=== PATIENT | male | born 1965 | race Caucasian/White ===

== ENCOUNTER 2018-02-04 19:46 | Inpatient (IN) | payer OTHER ==
[~2018-02-04] VITALS: Ht 177.8 cm; Wt 90.8 kg
[2018-02-04 21:11] LABS: PLATELET COUNT 123 x10^3mcL (130-400)
[2018-02-04 21:36] LABS: ALKALINE PHOSPHATASE 174 U/L (46-116); ALT/SGPT 33 U/L (16-63); AMYLASE 44 U/L (25-115); AST/SGOT 51 U/L (15-37); BILIRUBIN TOTAL 2.11 mg/dL (0.20-1.00); CALCIUM 8.3 mg/dL (8.5-10.1); CARBON DIOXIDE 25.2 mmol/L (21-32); CHLORIDE SERUM 99 mmol/L (98-107); CREATININE SERUM 1.6 mg/dL (0.7-1.3); GFR1 49 mL/min; GLUCOSE SERUM 110 mg/dL (74-106); LIPASE 395 IU/L (73-393); SODIUM SERUM 129 mmol/L (136-145); TOTAL PROTEIN, SERUM 8.1 g/dL (6.4-8.2)
[2018-02-04 21:38] LABS: ALBUMIN 2.3 g/dL (3.4-5.0)
[2018-02-04 21:39] LABS: POTASSIUM SERUM 5.9 mmol/L (3.5-5.1)
[2018-02-04] MEDS ORDERED: CALCIUM 1,0001 EACH PO (22:55)
[2018-02-04] MEDS ORDERED: PROPRANOLOL HCL20 MG PO (22:56)
[2018-02-04] MEDS ORDERED: LACTULOSE10 GM/152 PO (22:56)
[2018-02-04] MEDS ORDERED: GOOD SENSE OMEP20 MG PO (22:57)
[2018-02-04] MEDS ORDERED: FUROSEMIDE40 MG PO (22:58)
[2018-02-04] MEDS ORDERED: OSTERA TABLET1 EACH PO (22:58)
[2018-02-04] MEDS ORDERED: REGLAN5 M1 PO (22:59)
[2018-02-04] MEDS ORDERED: MULTIVITAMIN1 SGL PO (23:00)
[2018-02-04] MEDS ORDERED: MAGNESIUM OXID400 MG PO (23:00)
[2018-02-04] MEDS ORDERED: XIFAXAN550 M1 PO (23:01)
[2018-02-05 01:57] VITALS: BP 115/60
[2018-02-05 06:31] LABS: BILIRUBIN TOTAL 2.12 mg/dL (0.20-1.00); CALCIUM 8.6 mg/dL (8.5-10.1); CARBON DIOXIDE 24.4 mmol/L (21-32); CREATININE SERUM 1.5 mg/dL (0.7-1.3); TOTAL PROTEIN, SERUM 7.1 g/dL (6.4-8.2)
[2018-02-05 06:44] LABS: ALBUMIN 2.5 g/dL (3.4-5.0); POTASSIUM SERUM 5.9 mmol/L (3.5-5.1)
[2018-02-05 07:36] LABS: BASOPHIL % 0.6 % (0-2)
[2018-02-05 07:37] LABS: PLATELET COUNT 115 x10^3mcL (130-400); RED CELL DISTRIBUTION WIDTH 16.5 % (11.5-14.5)
[2018-02-05 08:28] VITALS: BP 93/53
[2018-02-05 12:27] VITALS: BP 105/63
[2018-02-05 12:38] LABS: CALCIUM 8.4 mg/dL (8.5-10.1); CARBON DIOXIDE 25.3 mmol/L (21-32); CREATININE SERUM 1.6 mg/dL (0.7-1.3)
[2018-02-05 16:04] VITALS: BP 102/60
[2018-02-05 17:04] LABS: microscopic required? NO
[2018-02-05 17:10] LABS: urine erythrocyte NEGATIVE (NEGATIVE)
[2018-02-05 19:35] VITALS: BP 102/64
[2018-02-06 05:38] VITALS: BP 104/68
[2018-02-06 06:57] LABS: CALCIUM 7.8 mg/dL (8.5-10.1); CARBON DIOXIDE 22.9 mmol/L (21-32); CREATININE SERUM 1.7 mg/dL (0.7-1.3); POTASSIUM SERUM 5.3 mmol/L (3.5-5.1)
[2018-02-06 08:16] VITALS: BP 98/59
[2018-02-06 12:39] VITALS: BP 107/65
[2018-02-06 17:05] VITALS: BP 103/58
[2018-02-06 21:18] VITALS: BP 106/66
[2018-02-07 05:53] VITALS: BP 94/55
[2018-02-07 07:01] LABS: CALCIUM 8.2 mg/dL (8.5-10.1); CARBON DIOXIDE 24.8 mmol/L (21-32); CREATININE SERUM 1.6 mg/dL (0.7-1.3); POTASSIUM SERUM 5.1 mmol/L (3.5-5.1)
[2018-02-07] MEDS ORDERED: GABAPENTIN100 M2 PO (08:31)
[2018-02-07 08:59] VITALS: BP 108/53
[2018-02-07] MEDS ORDERED: SPIRONOLACTONE100 MG PO (11:21)
[2018-02-07] MEDS ORDERED: FLA250 PO (11:21)
[2018-02-07 11:23] VITALS: BP 108/53
[2018-02-07 12:19] VITALS: BP 106/67
== END 2018-02-07 14:10 | disposition home or self-care (01) | DRG 425 ==
LOC: ED 19:46 → DU 02-05 00:09
PROVIDERS: Emergency Medicine; Internal Medicine; Internal Medicine Pulmonary Disease
DX: E87.5 Hyperkalemia (principal); N17.9 Acute kidney failure, unspecified; N18.3 Chronic kidney disease, stage 3 (moderate); K72.90 Hepatic failure, unspecified without coma; K70.30 Alcoholic cirrhosis of liver without ascites; G62.9 Polyneuropathy, unspecified; E87.1 Hypo-osmolality and hyponatremia; F10.21 Alcohol dependence, in remission; K21.9 Gastro-esophageal reflux disease without esophagitis; F10.20 Alcohol dependence, uncomplicated; T50.0X5A Adverse effect of mineralocorticoids and their antagonists, initial encounter; Z87.891 Personal history of nicotine dependence; Y92.89 Other specified places as the place of occurrence of the external cause
CPT/HCPCS: G0480; J1815; J1940; J2354; J2405; J3490; J7030; J7040; J7042; P9047; Q0092

== ENCOUNTER 2018-12-23 15:03 | Emergency (ER) | payer OTHER ==
[~2018-12-23] VITALS: Ht 177.8 cm; Wt 86.2 kg
[~2018-12-23 15:03] MED LIST: CALCIUM 1,0001 EACH PO; FLA250 PO; FUROSEMIDE40 MG PO; GABAPENTIN100 M2 PO; GOOD SENSE OMEP20 MG PO; LACTULOSE10 GM/152 PO; MAGNESIUM OXID400 MG PO; MULTIVITAMIN1 SGL PO; OSTERA TABLET1 EACH PO; PROPRANOLOL HCL20 MG PO; REGLAN5 M1 PO; SPIRONOLACTONE100 MG PO; XIFAXAN550 M1 PO
[2018-12-23 15:08] VITALS: Ht 177.8 cm; Wt 86.2 kg
[2018-12-23 16:57] LABS: BASOPHIL % 0.1 % (0-2)
[2018-12-23 16:58] LABS: PLATELET COUNT 114 x10^3mcL (130-400); RED CELL DISTRIBUTION WIDTH 15.8 % (11.5-14.5)
[2018-12-23 17:08] LABS: CARBON DIOXIDE 26.5 mmol/L (21-32); CREATININE SERUM 1.7 mg/dL (0.7-1.3); POTASSIUM SERUM 4.3 mmol/L (3.5-5.1)
[2018-12-23 17:12] LABS: BILIRUBIN TOTAL 2.01 mg/dL (0.20-1.00)
[2018-12-23 17:13] LABS: ALBUMIN 3.1 g/dL (3.4-5.0); TOTAL PROTEIN, SERUM 8.8 g/dL (6.4-8.2)
[2018-12-23 20:08] VITALS: BP 108/71
== END 2018-12-23 20:08 | disposition home or self-care (01) ==
LOC: ED 15:03
PROVIDERS: Emergency Medicine
DX: E86.0 Dehydration (principal); K72.10 Chronic hepatic failure without coma; N18.9 Chronic kidney disease, unspecified
CPT/HCPCS: 83880; J2405; J2765; J7030; J7050

== ENCOUNTER 2019-01-12 17:28 | Inpatient (IN) | payer OTHER ==
[~2019-01-12] VITALS: Ht 167.6 cm; Wt 74.4 kg
[2019-01-12 17:40] VITALS: Ht 167.6 cm; Wt 74.4 kg
[2019-01-12 18:48] LABS: BASOPHIL % 0.2 % (0-2)
[2019-01-12 18:49] LABS: PLATELET COUNT 100 x10^3mcL (130-400); RED CELL DISTRIBUTION WIDTH 14.6 % (11.5-14.5)
[2019-01-12 19:09] LABS: ALKALINE PHOSPHATASE 114 U/L (46-116); ALT/SGPT 28 U/L (16-63); AST/SGOT 38 U/L (15-37); BILIRUBIN TOTAL 1.6 mg/dL (0.20-1.00); CALCIUM 8.5 mg/dL (8.5-10.1); CARBON DIOXIDE 29.4 mmol/L (21-32); CHLORIDE SERUM 94 mmol/L (98-107); GFR1 17 mL/min; GLUCOSE SERUM 122 mg/dL (74-106); LIPASE 316 IU/L (73-393); POTASSIUM SERUM 4.9 mmol/L (3.5-5.1); SODIUM SERUM 130 mmol/L (136-145); TOTAL PROTEIN, SERUM 7.8 g/dL (6.4-8.2)
[2019-01-12 19:15] LABS: ALBUMIN 2.9 g/dL (3.4-5.0)
[2019-01-12 21:34] LABS: microscopic required? NO
[2019-01-12 21:41] LABS: UA SPECIFIC GRAVITY 1.015 (1.005-1.035); urine erythrocyte NEGATIVE (NEGATIVE)
[2019-01-12] MEDS ORDERED: BUMETANIDE2 MG PO (22:05)
[2019-01-13 00:19] VITALS: BP 104/58
[2019-01-13 07:53] LABS: BASOPHIL % 0.2 % (0-2); RED CELL DISTRIBUTION WIDTH 14.4 % (11.5-14.5)
[2019-01-13 07:59] LABS: PLATELET COUNT 93 x10^3mcL (130-400)
[2019-01-13 08:23] LABS: CALCIUM 8.2 mg/dL (8.5-10.1); CARBON DIOXIDE 26.9 mmol/L (21-32); CREATININE SERUM 3.2 mg/dL (0.7-1.3); POTASSIUM SERUM 4.5 mmol/L (3.5-5.1); TOTAL PROTEIN, SERUM 6.9 g/dL (6.4-8.2)
[2019-01-13 08:30] LABS: ALBUMIN 2.5 g/dL (3.4-5.0)
[2019-01-13 16:18] VITALS: BP 104/60
[2019-01-13 21:35] VITALS: BP 94/56
[2019-01-14 05:29] VITALS: BP 90/56
[2019-01-14 06:58] LABS: BASOPHIL % 0 % (0-2); PLATELET COUNT 83 x10^3mcL (130-400); RED CELL DISTRIBUTION WIDTH 15.4 % (11.5-14.5)
[2019-01-14 07:31] LABS: BILIRUBIN DIRECT 0.72 mg/dL (0.0-0.2); BILIRUBIN TOTAL 1.47 mg/dL (0.20-1.00); CARBON DIOXIDE 25.2 mmol/L (21-32); CREATININE SERUM 2.6 mg/dL (0.7-1.3); POTASSIUM SERUM 4.7 mmol/L (3.5-5.1); TOTAL PROTEIN, SERUM 6.4 g/dL (6.4-8.2)
[2019-01-14 07:38] LABS: BILIRUBIN TOTAL 1.47 mg/dL (0.20-1.00); CARBON DIOXIDE 24.7 mmol/L (21-32); CREATININE SERUM 2.6 mg/dL (0.7-1.3); POTASSIUM SERUM 4.8 mmol/L (3.5-5.1); TOTAL PROTEIN, SERUM 6.4 g/dL (6.4-8.2)
[2019-01-14 07:53] LABS: ALBUMIN 2.3 g/dL (3.4-5.0)
[2019-01-14 08:35] LABS: ALBUMIN 2.3 g/dL (3.4-5.0)
[2019-01-14 08:57] VITALS: BP 104/62
[2019-01-14 16:49] VITALS: BP 106/59
[2019-01-14 20:50] VITALS: BP 104/64
[2019-01-15 05:59] VITALS: BP 100/57
[2019-01-15 07:20] LABS: BASOPHIL % 0.2 % (0-2)
[2019-01-15 07:34] LABS: PLATELET COUNT 83 x10^3mcL (130-400)
[2019-01-15 07:45] LABS: ALBUMIN 2.2 g/dL (3.4-5.0); BILIRUBIN TOTAL 0.9 mg/dL (0.20-1.00); CALCIUM 8.1 mg/dL (8.5-10.1); CARBON DIOXIDE 26.6 mmol/L (21-32); CREATININE SERUM 1.7 mg/dL (0.7-1.3); POTASSIUM SERUM 4.9 mmol/L (3.5-5.1); TOTAL PROTEIN, SERUM 6.3 g/dL (6.4-8.2)
[2019-01-15 09:17] VITALS: BP 106/65
[2019-01-15 13:16] VITALS: BP 106/65
[2019-01-15 13:54] VITALS: BP 106/65
== END 2019-01-15 15:28 | disposition home or self-care (01) | DRG 710 ==
LOC: ED 17:28 → MU 20:32 → DU 20:32 → MU 23:00
PROVIDERS: Emergency Medicine; Internal Medicine Pulmonary Disease; Surgery; ADMIT Internal Medicine
PROC: 0WUF0JZ Supplement Abdominal Wall with Synthetic Substitute, Open Approach (ICD-10-PCS; principal; 2019-01-13 09:15)
DX: A41.9 Sepsis, unspecified organism (principal); N17.9 Acute kidney failure, unspecified; E87.2 Acidosis; D61.818 Other pancytopenia; E46 Unspecified protein-calorie malnutrition; I85.10 Secondary esophageal varices without bleeding; E87.1 Hypo-osmolality and hyponatremia; K43.6 Other and unspecified ventral hernia with obstruction, without gangrene; K76.6 Portal hypertension; K70.30 Alcoholic cirrhosis of liver without ascites; N18.9 Chronic kidney disease, unspecified; Z68.26 Body mass index [BMI] 26.0-26.9, adult
CPT/HCPCS: C1781; G0378; J0330; J2270; J2405; J2543; J2704; J3010; J3490; J7030; J7042; J7060; P9047; Q0092